=== PATIENT | male | born 1960 | race Caucasian/White ===

== ENCOUNTER → 2019-06-27 14:35 | Outpatient (CLI) | payer OTHER, SELFPAY ==
[2019-06-27 14:47] LABS: Bacteria Urine None Seen; RBC Urine None Seen (0-5/HPF); WBC Urine None Seen (0-5/HPF)
[2019-06-27 15:10] LABS: Appearance Urine UA CLEAR; Bilirubin Urine UA NEGATIVE (NEGATIVE); Color Urine UA YELLOW; Glucose Urine UA NEGATIVE (Negative); Ketones Urine UA NEGATIVE (NEGATIVE); Leukocyte Esterase Urine UA NEGATIVE (NEGATIVE); Nitrite Urine UA NEGATIVE (Negative); Occult Blood Urine UA NEGATIVE (Negative); Protein Urine UA NEGATIVE (Negative); Specific Gravity Urine UA <=1.005 (1.000-1.035); Urobilinogen Urine UA 0.2 E.U./dL (0.2); pH Urine UA 6.5 (4.5-8.0)
[2019-06-27 15:17] LABS: Culture Indicated Urine Cult Not Indicated; Urine Comments Microscopic Normal
[2019-06-27 15:40] LABS: Add Manual Diff / Slide Review NO; Basophils Absolute Auto 0 /uL (0-100); Basophils Percent Auto 0.5 % (0-2); Eosinophils Absolute Auto 300 /uL (0-450); Eosinophils Percent Auto 4.5 % (2-4); Hematocrit 41.4 % (41-53); Lymphocytes Absolute Auto 1700 /uL (1100-4500); Lymphocytes Percent Auto 25.9 % (25-40); Mean Corpuscular HGB Conc 33.8 % (30-36); Mean Corpuscular Hemoglobin 31.3 PG (26-34); Mean Corpuscular Volume 92.5 fL (80-100); Monocytes Absolute Auto 500 /uL (0-900); Monocytes Percent Auto 7.9 % (3-14); Neutrophils Absolute Auto 4100 /uL (1500-7000); Neutrophils Percent Auto 61.2 % (50-75); Platelet Count 255 X10^3/uL (150-400); Red Blood Cell Count 4.48 X10^6/uL (4.5-5.9); Red Cell Distribution Width 12.9 % (11.6-14.8); White Blood Cell Count 6.7 X10^3/uL (4.5-11.0)
[2019-06-27 16:23] LABS: B Type Natriuretic Peptide < 100 (<100)
[2019-06-27 16:31] LABS: Hemoglobin A1C% w Est Avg Glu 5.8 % (4.0-6.0)
[2019-06-27 16:39] LABS: Alanine Aminotransferase 48 IU/L (21-72); Albumin 4.6 g/dL (3.5-5.0); Albumin Globulin Ratio 1.8 (1.0-2.8); Alkaline Phosphatase 64 U/L (38-126); Aspartate Aminotransferase 34 IU/L (17-59); BUN Creatinine Ratio 21.3 (6-22); Bilirubin Total 0.7 mg/dL (0.2-1.3); Blood Urea Nitrogen 17 mg/dL (9-20); Calcium 9.7 mg/dL (8.4-10.2); Carbon Dioxide 30 mmol/L (22-32); Chloride 97 mmol/L (98-107); Cholesterol 209 mg/dL (140-199); Estimated Glomerular Filt Rate > 60.0 mL/min (>60); Globulin 2.6 g/dL (1.7-4.1); Glucose 94 mg/dL (70-100); HDL Cholesterol 63 mg/dL (40-60); HEMOLYSIS < 15 (0-50); LDL Cholesterol Calculated 129 mg/dL (<100); Potassium 4.2 mmol/L (3.4-5.1); Sodium 138 mmol/L (137-145); Total Protein 7.2 g/dL (6.3-8.2); Triglycerides 87 mg/dL (35-150)
== END ==
PROVIDERS: Visit Provider Hospitalist
DX: I10 Essential (primary) hypertension (principal); E66.9 Obesity, unspecified; R60.9 Edema, unspecified
CPT/HCPCS: 36415; 80053; 80061; 81001; 83036; 83880; 85025

== ENCOUNTER 2019-10-21 12:03 | Day surgery (SDC) | payer OTHER, SELFPAY ==
[2019-10-21] MEDS: SODIUM CHLORIDE 0.9% 1,000 ML 200 ML IV (12:21)
[2019-10-21 12:37] VITALS: BP 181/93; PULSE 88; RESP 16; TEMP 36.4; O2SAT 100; BMI 81.3
--- NOTE | 2019-10-21 12:50 | PM.HP.1 ---
History of Present Illness History of Present Illness Date Patient Seen: 10/21/19 Time Patient Seen: 12:50 Chief complaint: [id number] Narrative: Patient here for his 1st screening colonoscopy. He is asymptomatic. Patient History Family & Social History Family History Father Hypertension Pacemaker Social History: household members spouse Tobacco & Substance use: Smoking Status Former smoker alcohol intake frequency 3 or more drinks per day Meds Home Medications and Allergies Home Medications Medication Instructions Recorded Confirmed Type losartan 100 1 tab PO DAILY #30 tab 07/02/19 10/21/19 Rx mg-hydrochlorothiazide 25 mg tablet hydrochlorothiazide 50 mg PO DAILY 10/21/19 10/21/19 History Allergies Allergy/AdvReac Type Severity Reaction Status Date / Time mupirocin AdvReac skin Verified 10/21/19 12:21 irritation, redness Review of Systems Review of Systems ROS: Yes All systems reviewed with the patient and are negative except as otherwise documented Exam Vital Signs (past 8 hours): - 10/21/19 12:37 Temperature 97.6 F Pulse Rate 88 Respiratory Rate 16 Blood Pressure 181/93 H Pulse Oximetry 100 Oxygen Delivery Method Room Air Narrative Exam Narrative: Patient resting comfortably in bed Lungs are clear with distant breath sounds Heart regular rhythm no murmur Abdomen obese no organomegaly is noted Rectal to be done at time of colonoscopy Assessment & Plan Assessment & Plan narrative: Asymptomatic patient here for his 1st screening colonoscopy he has no unanswered questions.
[2019-10-21] MEDS: MIDAZOLAM 5 MG/5 ML VIAL IV (13:57)
[2019-10-21] MEDS: fentaNYL 250 MCG/5 ML INJ IV (13:58)
[2019-10-21 14:00] VITALS: BP 149/87; PULSE 88; RESP 13; TEMP 36.7; O2SAT 96
--- NOTE | 2019-10-21 14:00 | PM.OP.ENDO ---
Operative Date/Time/Diagnoses Date of procedure: 10/21/19 Time of procedure: 14:00 Pre-op diagnosis: Screening colonoscopy Post-op diagnosis: same Procedure & Clinicians Study performed: Total colonoscopy to the cecum Same procedure as scheduled: Yes Surgeon: Esdras Khan Procedure Notes SCOAP/Timeout: Was done Procedure in detail: The patient was properly identified during surgical pause was given a total of 5 mg of Versed and 200 micro g of fentanyl and remained comfortable throughout the procedure. The flexible fiberoptic colonoscope inserted transanally to the cecum. Patient has minimal sigmoid diverticulosis. No polyps tumors or ulcerations are identified anywhere in the colon. Procedure was well tolerated Scope withdrawal time: 8 Sedation minutes: 16 Findings: diverticulosis Impression: Minimal sigmoid diverticulosis Post-procedure Recommendations: Colonscopy in 10 years Disposition: PACU
[2019-10-21 14:05] VITALS: BP 130/79; PULSE 94; RESP 12; TEMP 36.6; O2SAT 97
[2019-10-21 14:08] VITALS: BP 127/61; PULSE 83; RESP 13; TEMP 36.6; O2SAT 97
--- NOTE | 2019-10-21 14:26 | SUR.PHASEII ---
brought in, d/c instructions discussed, both voiced an understanding. Pt dressed when ready and left when ready and in stable condition.
== END 2019-10-21 14:25 | disposition home or self-care (01) ==
PROVIDERS: Referring Provider Surgery; Visit Provider Surgery
PROC: 0DJD8ZZ Inspection of Lower Intestinal Tract, Via Natural or Artificial Opening Endoscopic (ICD-10-PCS; CPT 45378; principal; 2019-10-21 13:00)
DX: Z12.11 Encounter for screening for malignant neoplasm of colon (principal); K57.30 Diverticulosis of large intestine without perforation or abscess without bleeding
CPT/HCPCS: 45378; 99152; J2250; J3010

== ENCOUNTER → 2020-03-26 06:55 | Outpatient (CLI) | payer OTHER, SELFPAY ==
--- NOTE | 2020-03-26 07:10 | DI.ECHO.S_ITS ---
Echocardiogram Report + + :Name: ELIO MARTIN Study Date: 03/26/2020 Height: 69 in : :[facility] Weight: 255 lb : : Gender: Male BSA: 2.3 m2 : :: 1960 Age: 59 yrs BP: 160/84 mmHg: :Reason For Study: Edema, Palpitations : :Ordering Physician: MURIEL, : :CAMILO Orlando Performed By: Soniya Leong : :Referring: CAMILO LLAMAS : + + Interpretation Summary The ejection fraction is estimated to be 60-65%. There is no significant valvular heart disease. Procedure: A two-dimensional transthoracic echocardiogram with color flow and Doppler was performed. The study quality was technically difficult. There is no prior echocardiogram noted for this patient. The patient was in sinus rhythm with heart rates between 66-75 bpm during the exam. Left Ventricle: The left ventricle is normal in size. There is mild concentric left ventricular hypertrophy. The ejection fraction is estimated to be 60-65%. Left ventricular wall motion is normal. Diastolic parameters suggest a relaxation abnormality of the left ventricle, consistent with probable normal filling pressures. Right Ventricle: The right ventricle is mildly dilated. The right ventricular systolic function is normal. Atria: The left atrium is mildly dilated. Right atrial size is normal. There is no Doppler evidence for an interatrial shunt. Mitral Valve: The mitral valve is normal in structure and function. There is trace mitral regurgitation. Aortic Valve: The aortic valve is trileaflet. The aortic valve opens well. There is no aortic valve stenosis. No aortic regurgitation is present. Tricuspid Valve: The tricuspid valve is normal in structure and function. No tricuspid regurgitation. Pulmonary artery pressures cannot be estimated because of the lack of a measurable TR jet velocity but the IVC suggests a CVP of around 3 mmHg. Pulmonic Valve: The pulmonic valve is not well visualized. The pulmonic valve is not well seen, but is grossly normal. There is a trace or physiologic amount of pulmonic regurgitation. Great Vessels: The aortic root is normal size. The ascending aorta could not be visualized. The IVC is of normal diameter and collapses greater than 50% with a sniff. This suggests a low right atrial pressure of 3 mm Hg. Pericardium/ Pleura There is no pericardial effusion. There is no pleural effusion. MMode/2D Measurements & Calculations LVIDd: 5.6 cm LVOT diam: 2.1 cm LVIDs: 3.7 cm Ao root diam: 3.4 cm FS: 33.9 % Ao Arch Diam (Prox Trans): 2.5 cm EPSS: 0.93 cm IVSd: 1.1 cm LVPWd: 1.2 cm LV mattson. diameter/BSA (cm/m^2): 2.4 LV sys. diameter/BSA (cm/m^2): 1.6 LA A2 area: 26.0 cm2 RA long axis: 5.5 cm LA A4 area: 23.3 cm2 RA area: 18.6 cm2 LA length (vol): 5.9 cm RA vol: 54.0 ml LA vol: 87.1 ml RA : 23.6 ml/m2 LA vol index: 38.0 ml/m2 IVC diam: 2.0 cm RVD1 (basal): 4.1 cm TAPSE: 1.9 cm Doppler Measurements & Calculations Ao V2 max: 129.8 cm/sec LVOT Max Thor: 114.7 cm/sec Ao V2 mean: 86.7 cm/sec LV V1 max P.3 mmHg Ao max P.7 mmHg LV V1 VTI: 24.0 cm Ao mean P.5 mmHg VIRGINIE(I,D): 3.2 cm2 Ao V2 VTI: 26.7 cm VIRGINIE(V,D): 3.2 cm2 sev ratio: 0.90 VIRGINIE indexed to BSA (cm^2/m^2): 1.4 MV E max thor: 98.2 cm/sec PA V2 max: 82.0 cm/sec MV A max thor: 93.0 cm/sec PA V2 mean: 58.7 cm/sec MV E/A: 1.1 PA mean P.5 mmHg Med Peak E' Thor: 9.2 cm/sec PA pr(Accel): 0.22 mmHg E/E' med: 10.7 Lat Peak E' Thor: 9.4 cm/sec E/E' lat: 10.4 E/e' average: 10.6 MV dec time: 0.17 sec SV(LVOT): 86.7 ml Reading Physician:02:49 PM
== END ==
PROVIDERS: PCP Internal Medicine; Referring Provider Internal Medicine; Visit Provider Internal Medicine
DX: R00.2 Palpitations (principal); R60.9 Edema, unspecified
CPT/HCPCS: 93306

== ENCOUNTER → 2022-09-26 13:26 | Outpatient (CLI) | payer OTHER, SELFPAY ==
[2022-09-26 14:21] LABS: Alanine Aminotransferase 38 IU/L (<50); Alkaline Phosphatase 65 U/L (38-126); Aspartate Aminotransferase 29 IU/L (17-59); BUN Creatinine Ratio 27.3 (6-22); Bilirubin Total 0.6 mg/dL (0.2-1.3); Blood Urea Nitrogen 18 mg/dL (9-20); Calcium 9.1 mg/dL (8.4-10.2); Carbon Dioxide 29 mmol/L (22-32); Chloride 97 mmol/L (98-107); Cholesterol 208 mg/dL (140-199); Estimated Glomerular Filt Rate > 60 mL/min (>60); Glucose 101 mg/dL (70-100); HDL Cholesterol 59 mg/dL (40-60); LDL Cholesterol Calculated 130 mg/dL (<100); Potassium 3.9 mmol/L (3.4-5.1); Sodium 137 mmol/L (137-145); Total Protein 7.2 g/dL (6.3-8.2); Triglycerides 94 mg/dL (35-150)
[2022-09-26 14:47] LABS: Prostate Specific Antigen Scrn 0.993 ng/mL (0.1-4.0)
[2022-09-30 15:50] LABS: Albumin 4.3 g/dL (3.5-5.0); Albumin Globulin Ratio 1.5 (1.0-2.8); Globulin 2.9 g/dL (1.7-4.1); HEMOLYSIS 36 (0-50)
== END ==
PROVIDERS: PCP Internal Medicine; Referring Provider Internal Medicine; Visit Provider Internal Medicine
DX: I10 Essential (primary) hypertension (principal); Z12.5 Encounter for screening for malignant neoplasm of prostate; Z13.6 Encounter for screening for cardiovascular disorders; Z79.899 Other long term (current) drug therapy
CPT/HCPCS: 36415; 80053; 80061; G0103

== ENCOUNTER 2022-09-27 16:36 | Emergency (ER) | payer OTHER, SELFPAY ==
[2022-09-27] VITALS (8 sets, daily range): BP systolic 150–202; BP diastolic 78–103; PULSE 77–192; RESP 15–24; TEMP 36.6; O2SAT 96–99; BMI 35.9
--- NOTE | 2022-09-27 16:54 | PC.NURSE ---
pt converted to SR
--- NOTE | 2022-09-27 17:03 | ED.ARRPALP ---
HPI - Arrhythmia/Palpitations General Chief Complaint: Arrhythmia/Palpitations Stated Complaint: heart palpitations, tightening in chest, rapid hr Time Seen by Provider: 09/27/22 16:46 Source: patient Mode of arrival: Ambulatory History of Present Illness HPI narrative: 61-year-old male former smoker with history of hypertension presents with a chief complaint of a rapid heart rate, chest pain and some lightheadedness. He states this started maybe a few hours ago and he thinks perhaps it happened a few days ago but otherwise he does not have any history of any rapid heart rate. He had been in his normal state of health when this started out of nowhere. When it happened a few days ago it lasted for an hour so and then resolved on its own. He denies any recent change in medications or diet. Is not been ill and has had no fever or chills. He denies recent travel or injury. He denies use of illicit drugs. He has not had alcohol in many days. Related Data Previous Rx's Medication Instructions Recorded sildenafil 50 mg tablet (Viagra) 50 mg PO DAILY PRN sexual activity 09/13/21 #10 tabs losartan 100 1 tab PO DAILY #90 tabs 07/28/22 mg-hydrochlorothiazide 25 mg tablet Allergies Allergy/AdvReac Type Severity Reaction Status Date / Time lisinopril AdvReac Severe cough Verified 09/27/22 16:47 mupirocin AdvReac skin Verified 09/27/22 16:47 irritation, redness Review of Systems Review of Systems Narrative: GENERAL: Denies chills, fatigue, malaise, fever, sweats. HEENT: Denies sinus pain, ear pain, sore throat, difficulty swallowing, dizziness. RESPIRATORY: See HPI CARDIOVASCULAR: See HPI GASTROINTESTINAL: Denies nausea, vomiting, abdominal pain, diarrhea, constipation, melena. : Denies dysuria, frequency, incontinence, hematuria, urinary retention. MUSCULOSKELETAL: denies weakness, joint pain, or bony pain SKIN: Denies rash, skin lesions, or other NEUROLOGIC: Denies weakness, headache, numbness, change in speech, confusion, seizures, incoordination. PSYCHIATRIC: No concerning psychosocial issues. 12 point review of systems is negative except for those stated above Patient History Medical History (Updated 09/27/22 @ 18:00 by Brandan Funes DO) Asthma (~2017) Eczema Hypertension Obesity DONOVAN (obstructive sleep apnea) Palpitations Proteinuria (~2009) Wears glasses Surgical History (Updated 04/22/20 @ 20:37 by Tequila Levi) Anesthesia History of colonoscopy (~2018) S/P ACL repair (~2010) Status post rotator cuff repair (~2008) Family History (Updated 04/22/20 @ 20:38 by Tequila Levi) Father Hypertension Pacemaker Loud snoring Sleep apnea Heart disease Mother Obesity Family/Other Loud snoring Sleep apnea Obesity Hypertension Grandfather Heart disease Social History household members: spouse Smoking Status: Former smoker Smoking Status: Former smoker alcohol intake frequency: 3 or more drinks per day Substance Use Type: does not use Exam Narrative Exam Narrative: GENERAL: [61] year old patient appears stated age. Well-developed patient, in mild distress. HEAD: Atraumatic. Normocephalic. EYES: Pupils equal round and reactive. Extraocular motions intact. No scleral icterus. No injection or drainage. ENT: Nose without bleeding, purulent drainage. Throat without erythema, tonsillar hypertrophy or exudate. Airway patent. NECK: Trachea midline. Non tender CARDIOVASCULAR: Tachycardic and regular rhythm without murmurs, gallops, or rubs. RESPIRATORY: Clear to auscultation. Breath sounds equal bilaterally. No wheezes, rales, or rhonchi. GASTROINTESTINAL: Abdomen soft, non-tender, nondistended. EXTREMITIES: No edema or joint tenderness. BACK: Nontender without deformity or crepitance. No flank tenderness. NEURO: AOx3. SKIN: No rash or erythema of visible areas Initial Vital Signs Initial Vital Signs: Vital Signs Temperature 98 F 09/27/22 16:44 Pulse Rate 192 H 09/27/22 16:44 Respiratory Rate 19 09/27/22 16:44 Blood Pressure 152/83 H 09/27/22 16:44 Pulse Oximetry 99 09/27/22 16:44 Oxygen Delivery Method 09/27/22 16:44 Course Orders Ordered: Discontinued Medications Diltiazem HCl (Diltiazem 5 Mg/Ml Sdv) 20 mg IV NOW ONE Stop: 09/27/22 16:47 Reevaluation(s) Reevaluation #1: Patient was moved to trauma 2 in preparation for cardioversion with Cardizem versus adenosine. We were attempting vagal maneuvers and when lying patient flat for modified Valsalva maneuver he spontaneously converted into a sinus rhythm in the 90s and remained there for the duration of his visit. Vital Signs Vital signs: Vital Signs - 8 hr 09/27/22 16:44 09/27/22 16:52 09/27/22 16:53 Temperature 98 F Pulse Rate 192 H 172 H Respiratory Rate 19 23 Blood Pressure 152/83 H 202/103 H Pulse Oximetry 99 99 Oxygen Delivery Method Room Air 09/27/22 16:53 09/27/22 17:00 09/27/22 17:00 Temperature Pulse Rate 96 H 93 H Respiratory Rate 23 24 Blood Pressure 173/94 H Pulse Oximetry 98 98 Oxygen Delivery Method MDM - Arrhythmia/Palpitations Lab Data Result diagrams: 09/27/22 16:50 09/27/22 16:50 Labs: Lab Results 09/27/22 09/27/22 09/27/22 Range/Units 16:50 16:50 16:50 WBC 7.0 (4.5-11.0) X10^3/uL RBC 4.57 (4.5-5.9) X10^6/uL Hgb 14.6 (13.5-17.5) g/dL Hct 42.3 (41-53) % MCV 92.6 (80-100) fL MCH 32.0 (26-34) PG MCHC 34.6 (30-36) % RDW 13.6 (11.6-14.8) % Plt Count 230 (150-400) X10^3/uL Neut % (Auto) 66.3 (50-75) % Lymph % (Auto) 21.8 L (25-40) % Carroll % (Auto) 7.9 (3-14) % Eos % (Auto) 3.4 (2-4) % Baso % (Auto) 0.6 (0-2) % Neut # (Auto) 4700 (2613-4848) /uL Lymph # (Auto) 1500 (5102-9669) /uL Carroll # (Auto) 600 (0-900) /uL Eos # (Auto) 200 (0-450) /uL Baso # (Auto) 0 (0-100) /uL Sodium 137 (137-145) mmol/L Potassium 3.8 (3.4-5.1) mmol/L Chloride 101 (98-107) mmol/L Carbon Dioxide 26 (22-32) mmol/L BUN 20 (9-20) mg/dL Creatinine 0.86 (0.66-1.25) mg/dL Estimated GFR > 60 (>60) mL/min BUN/Creatinine Ratio 23.3 H (6-22) Glucose 113 H (70-100) mg/dL Calcium 9.4 (8.4-10.2) mg/dL Total Creatine Kinase 134 (55-170) U/L CK-MB (CK-2) 1.53 (<2.37) ng/mL CK-MB (CK-2) Rel Index 1.1 L (1.5-5.0) % Troponin I < 0.012 (0.01-0.034) ng/mL NT-Pro-B Natriuret Pep 68 (<125) pg/mL TSH 3.78 (0.47-4.68) uIU/mL Urine Dip Bedside Urine Glucose Negative Bedside Urine Bilirubin - Negative Bedside Urine Ketone - Negative Urine Specific Bucklin 1.015 Bedside Urine Occult Blood - Negative Bedside Urine pH 6.0 Bedside Urine Protein - Negative Bedside Urine Urobilinogen - Negative Bedside Urine Nitrite - Negative Bedside Urine Leukocytes - Negative Esterase ECG Data Interpretation: [1646] EKG is normal sinus rhythm rate [179 ] and free of any signs of ischemia or ectopy. No ST segmental elevation or depression. No T wave inversions MDM Narrative Medical decision making narrative: CC: 61-year-old male with rapid heart rate shortness of breath and heaviness Complicating co-morbidities: Hypertension Data collected from: Patient Medical records reviewed: including prior notes from PCP Differential considered, but not limited to: SVT versus rapid AFib versus atrial flutter versus other Exam documented above, pertinent findings include: Rapid regular heart rate, some increased work of breathing while tachycardic Lab Test results independently reviewed as above. Pertinent findings: Independently reviewed EKG as above Re-evaluations: Patient completely asymptomatic after conversion of SVT Discussion: Patient moderately symptomatic with SVT, converted spontaneously while preparing to administer diltiazem. Labs are reassuring and patient remains in a sinus rhythm without dizziness, weakness or lightheadedness. No ongoing chest pain or shortness of breath. He is appropriate for discharge and given extensive return precautions as well as encouragement to research vagal maneuvers that may be performed at home. Disposition: see below, along with detailed discharge instructions that have been reviewed with patient as well as indications for ED re-evaluation and additional outpatient follow up Discharge Plan Departure Patient Disposition: Home Clinical Impression: Supraventricular tachycardia Instructions: Paroxysmal Supraventricular Tachycardia Activity Restrictions/Additional Instructions: *You have been diagnosed with [SVT] *What to do: *Please continue to take your regular medications as directed. *Please follow up with your primary care provider in 2-3 days, call for an appointment. Let them know you were seen in the Emergency Department and that we ask that you be seen in follow up. We will electronically transmit a record of today's note if your PCP is in our system * as we discussed avoid consuming stimulants such as caffeine, alcohol, nicotine. Avoid significant physical exertion and other things that would cause your heart to elevate significantly until follow-up with your primary care provider *Return to Emergency Department if you should have any new, worsening or concerning symptoms, such as [fever greater than 101 F, shaking chills, worsening pain, persistent vomiting or other bothersome symptoms] Prescriptions: No Action sildenafil [Viagra] 50 mg tablet 50 mg PO DAILY PRN (Reason: sexual activity) Qty: 10 5RF Rx Instructions: administer 30 minutes to 4 hours before activity losartan-hydrochlorothiazide 100-25 mg tablet 1 tab PO DAILY Qty: 90 3RF Referrals: Steve Pierre MD [Primary Care Provider] - Stand Alone Forms: Patient Portal/API
[2022-09-27 17:40] LABS: Basophils Absolute Auto 0 /uL (0-100); Hemoglobin 14.6 g/dL (13.5-17.5)
[2022-09-27 17:43] LABS: Add Manual Diff / Slide Review NO; Basophils Percent Auto 0.6 % (0-2); Eosinophils Absolute Auto 200 /uL (0-450); Eosinophils Percent Auto 3.4 % (2-4); Hematocrit 42.3 % (41-53); Lymphocytes Absolute Auto 1500 /uL (1100-4500); Lymphocytes Percent Auto 21.8 % (25-40); Mean Corpuscular HGB Conc 34.6 % (30-36); Mean Corpuscular Volume 92.6 fL (80-100); Monocytes Absolute Auto 600 /uL (0-900); Monocytes Percent Auto 7.9 % (3-14); Neutrophils Absolute Auto 4700 /uL (1500-7000); Neutrophils Percent Auto 66.3 % (50-75); Platelet Count 230 X10^3/uL (150-400); Red Blood Cell Count 4.57 X10^6/uL (4.5-5.9); Red Cell Distribution Width 13.6 % (11.6-14.8)
[2022-09-27 17:54] LABS: BUN Creatinine Ratio 23.3 (6-22); Blood Urea Nitrogen 20 mg/dL (9-20); Calcium 9.4 mg/dL (8.4-10.2); Carbon Dioxide 26 mmol/L (22-32); Chloride 101 mmol/L (98-107); Creatine Kinase 134 U/L (55-170); Estimated Glomerular Filt Rate > 60 mL/min (>60); Glucose 113 mg/dL (70-100); HEMOLYSIS 19 (0-50); Potassium 3.8 mmol/L (3.4-5.1); Sodium 137 mmol/L (137-145)
[2022-09-27 18:06] LABS: NT-proBNP (BNP-Adult 18+) 68 pg/mL (<125); Troponin I < 0.012 ng/mL (0.01-0.034)
[2022-09-27 18:08] LABS: CKMB % Relative Index 1.1 % (1.5-5.0); Creatine Kinase MB 1.53 ng/mL (<2.37)
[2022-09-27 18:26] LABS: TSH w/ Reflex to FT4 3.78 uIU/mL (0.47-4.68)
== END 2022-09-27 18:57 | disposition home or self-care (01) ==
PROVIDERS: Emergency Provider Emergency Medicine; PCP Internal Medicine
DX: I47.1 Supraventricular tachycardia (principal)
CPT/HCPCS: 36415; 80048; 81003; 82550; 82553; 83880; 84443; 84484; 85025; 93005; 99283; 99284

== ENCOUNTER → 2022-10-12 07:56 | Outpatient (CLI) | payer OTHER, SELFPAY ==
--- NOTE | 2022-10-24 14:50 | PM.CARDMON.1 ---
Occupational Health Physiotherapist Report Referral & Results Date Patient Seen: 10/12/22 Requesting provider: Steve Pierre Indication: SVT Duration of monitoring (days): 8 Diary information: There were 2 patient triggered events both associated with sinus rhythm only Data: Minimum heart rate identified was 49 beats per minute at 04:11 on 10/17/2022 Maximum sinus heart rate was 137 beats per minute at 19:45 on 10/14/2022 Maximum overall heart rate was 150 beats per minute at 16:26 on 10/16/2022 during a run of SVT Less than 1% of identified beats were ventricular or supraventricular ectopic in origin, which would classify them as rare. 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
== END ==
PROVIDERS: PCP Internal Medicine; Referring Provider Internal Medicine; Visit Provider Internal Medicine
DX: I47.1 Supraventricular tachycardia (principal)
CPT/HCPCS: 93242; 93248

== ENCOUNTER → 2023-07-21 16:22 | Outpatient (CLI) | payer OTHER, SELFPAY ==
[2023-07-21 17:30] LABS: BUN Creatinine Ratio 31.9 (6-22); Blood Urea Nitrogen 22 mg/dL (9-20); Calcium 9.6 mg/dL (8.4-10.2); Carbon Dioxide 29 mmol/L (22-32); Chloride 102 mmol/L (98-107); Estimated Glomerular Filt Rate > 60 mL/min (>60); Glucose 122 mg/dL (80-110); HEMOLYSIS 24 (0-50); Potassium 3.7 mmol/L (3.4-5.1); Sodium 138 mmol/L (137-145)
== END ==
PROVIDERS: PCP Internal Medicine; Referring Provider Internal Medicine; Visit Provider Internal Medicine
DX: I10 Essential (primary) hypertension (principal)
CPT/HCPCS: 36415; 80048

== ENCOUNTER → 2023-07-28 17:47 | Outpatient (CLI) | payer OTHER, SELFPAY ==
[2023-07-28 18:01] LABS: Add Manual Diff / Slide Review NO; Basophils Absolute Auto 100 /uL (0-100); Basophils Percent Auto 0.8 % (0-2); Eosinophils Absolute Auto 200 /uL (0-450); Eosinophils Percent Auto 3.9 % (2-4); Hematocrit 38.9 % (41-53); Hemoglobin 13.5 g/dL (13.5-17.5); Lymphocytes Absolute Auto 2000 /uL (1100-4500); Lymphocytes Percent Auto 30.8 % (25-40); Mean Corpuscular HGB Conc 34.7 % (30-36); Mean Corpuscular Hemoglobin 31.3 PG (26-34); Mean Corpuscular Volume 90.1 fL (80-100); Monocytes Absolute Auto 400 /uL (0-900); Monocytes Percent Auto 6.9 % (3-14); Neutrophils Absolute Auto 3700 /uL (1500-7000); Neutrophils Percent Auto 57.6 % (50-75); Platelet Count 232 X10^3/uL (150-400); Red Blood Cell Count 4.32 X10^6/uL (4.5-5.9); Red Cell Distribution Width 12.7 % (11.6-14.8); White Blood Cell Count 6.4 X10^3/uL (4.5-11.0)
[2023-07-28 18:14] LABS: Blood Urea Nitrogen 19 mg/dL (9-20); Calcium 9.5 mg/dL (8.4-10.2); Carbon Dioxide 26 mmol/L (22-32); Chloride 105 mmol/L (98-107); Estimated Glomerular Filt Rate > 60 mL/min (>60); Glucose 153 mg/dL (80-110); HEMOLYSIS 35 (0-50); Potassium 3.8 mmol/L (3.4-5.1); Sodium 138 mmol/L (137-145)
== END ==
PROVIDERS: PCP Internal Medicine; Referring Provider Internal Medicine Cardiovascular Disease; Visit Provider Internal Medicine Cardiovascular Disease
DX: I47.10 Supraventricular tachycardia, unspecified (principal)
CPT/HCPCS: 36415; 80048; 85025

== ENCOUNTER → 2023-11-02 07:37 | Outpatient (CLI) | payer OTHER, SELFPAY ==
[2023-11-02 08:29] LABS: Add Manual Diff / Slide Review NO; Basophils Absolute Auto 0 /uL (0-100); Basophils Percent Auto 0.6 % (0-2); Eosinophils Absolute Auto 300 /uL (0-450); Eosinophils Percent Auto 6.2 % (2-4); Hematocrit 40.1 % (41-53); Hemoglobin 13.6 g/dL (13.5-17.5); Lymphocytes Absolute Auto 1600 /uL (1100-4500); Lymphocytes Percent Auto 30.7 % (25-40); Mean Corpuscular Hemoglobin 31.4 PG (26-34); Mean Corpuscular Volume 92.4 fL (80-100); Monocytes Absolute Auto 500 /uL (0-900); Monocytes Percent Auto 10.3 % (3-14); Neutrophils Absolute Auto 2800 /uL (1500-7000); Neutrophils Percent Auto 52.2 % (50-75); Platelet Count 252 X10^3/uL (150-400); Red Blood Cell Count 4.34 X10^6/uL (4.5-5.9); White Blood Cell Count 5.3 X10^3/uL (4.5-11.0)
[2023-11-02 09:46] LABS: Alanine Aminotransferase 43 IU/L (<50); Albumin 4.4 g/dL (3.5-5.0); Albumin Globulin Ratio 1.4 (1.0-2.8); Alkaline Phosphatase 63 U/L (38-126); Aspartate Aminotransferase 31 IU/L (17-59); BUN Creatinine Ratio 22.5 (6-22); Bilirubin Total 0.6 mg/dL (0.2-1.3); Blood Urea Nitrogen 18 mg/dL (9-20); Calcium 9.3 mg/dL (8.4-10.2); Carbon Dioxide 31 mmol/L (22-32); Chloride 101 mmol/L (98-107); Cholesterol 227 mg/dL (140-199); Estimated Glomerular Filt Rate > 60 mL/min (>60); Globulin 3.1 g/dL (1.7-4.1); Glucose 125 mg/dL (80-110); HDL Cholesterol 58 mg/dL (40-60); HEMOLYSIS 16 (0-50); LDL Cholesterol Calculated 145 mg/dL (<100); Potassium 4.4 mmol/L (3.4-5.1); Sodium 140 mmol/L (137-145); TSH w/ Reflex to FT4 2.55 uIU/mL (0.47-4.68); Total Protein 7.5 g/dL (6.3-8.2); Triglycerides 120 mg/dL (35-150)
[2023-11-02 09:51] LABS: NT-proBNP (BNP-Adult 18+) < 20 pg/mL (<125)
[2023-11-02 10:12] LABS: Prostate Specific Antigen Scrn 1.24 ng/mL (0.1-4.0)
== END ==
PROVIDERS: PCP Internal Medicine; Referring Provider Internal Medicine; Visit Provider Internal Medicine
DX: Z12.5 Encounter for screening for malignant neoplasm of prostate (principal); Z13.6 Encounter for screening for cardiovascular disorders; J45.909 Unspecified asthma, uncomplicated; G47.33 Obstructive sleep apnea (adult) (pediatric); I10 Essential (primary) hypertension; R00.2 Palpitations; R60.9 Edema, unspecified
CPT/HCPCS: 36415; 80053; 80061; 83880; 84443; 85025; G0103

== ENCOUNTER → 2024-02-19 13:14 | Outpatient (CLI) | payer OTHER, SELFPAY ==
--- NOTE | 2024-02-19 13:14 | DI.US.S_ITS ---
PROCEDURE: US PERIPH VENOUS LOW EXTREM RT INDICATIONS: EDEMA TECHNIQUE: Real-time imaging, as well as color and pulse Doppler interrogation, were performed of the lower extremity deep veins from the inguinal ligament to the popliteal fossa, with documentation of the visualized calf veins. COMPARISON: None. FINDINGS: The common femoral, femoral, popliteal, and the visualized calf veins are normally compressible, and free of intraluminal thrombus. Color and pulse Doppler demonstrate normal phasic intraluminal flow. There is normal augmentation response to distal compression maneuver. IMPRESSION: No findings of lower extremity deep venous thrombosis. Dictated by: Julio eCsar Lisa M.D. on 02/19/2024 at 14:06 Approved by: Julio Cesar Lisa M.D. on 02/19/2024 at 14:06
== END ==
PROVIDERS: PCP Internal Medicine; Referring Provider Internal Medicine; Visit Provider Internal Medicine
DX: I47.10 Supraventricular tachycardia, unspecified (principal); R60.0 Localized edema
CPT/HCPCS: 93971

== ENCOUNTER → 2024-03-07 06:54 | Outpatient (CLI) | payer OTHER, SELFPAY ==
--- NOTE | 2024-03-07 06:55 | DI.ECHO.S_ITS ---
[facility] : : [address] : [place] : : [id number] : : Phone: [phone] Echocardiogram Report + + :Name: ELIO MARTIN Study Date: 03/07/2024 Height: 69 in : :[facility] ReadingLocation: Weight: 255 lb : : Gender: Male BSA: 2.3 m2 : :: 1960 Age: 63 yrs BP: 162/92 mmHg: :Reason For Study: SUPRAVENTRICULAR TACHYCARDIA : :Ordering Physician: MURIEL, : :CAMILO Orlando Performed By: Sachin Banks : :Referring: CAMILO LLAMAS : + + Interpretation Summary 1) Mildly increased left ventricular thickness (concentric) with normal size, normal wall motion, and normal systolic function (EF 60-65%). 2) Mildy enlarged right ventricle with normal function. 3) No significant valvular abnormalities. 4) Hypertension present during the study (BP 162/92mmHg). 5) Compared to the echo done 03/26/2020, no significant change. Procedure: A two-dimensional transthoracic echocardiogram with color flow and Doppler was performed. The study quality was technically adequate. Comparison is made with the echocardiogram of 03/26/2020. The patient was in normal sinus rhythm during the exam. The heart rate ranged between 66-77 bpm during the study. Left Ventricle: The left ventricle is normal in size. There is mild concentric left ventricular hypertrophy. The ejection fraction is estimated to be 60-65%. Left ventricular systolic function appears normal without focal wall motion abnormalities. Right Ventricle: The right ventricle is mildly dilated. The right ventricular systolic function is normal. Atria: The left atrium is mildly dilated. The right atrium is mild to moderately dilated. The interatrial septum grossly appears intact with no obvious evidence for an atrial septal defect. Mitral Valve: The mitral valve is normal. There is no mitral valve stenosis. There is trace mitral regurgitation. Aortic Valve: The aortic valve is trileaflet. There is no aortic valve stenosis. There is trace aortic regurgitation. Tricuspid Valve: The tricuspid valve is normal. There is no tricuspid stenosis. No tricuspid regurgitation. Pulmonary artery pressures cannot be estimated because of the lack of a measurable TR jet velocity. Pulmonic Valve: The pulmonic valve is not well visualized. There is no pulmonic valvular stenosis. There is no pulmonic valvular regurgitation. Great Vessels: The aortic root is borderline dilated. The dimensions of the ascending aorta are normal. The IVC is dilated (diameter is greater than 2.1 cm) yet it collapses greater than 50% with a sniff. This suggests a right atrial pressure of 8 mm Hg. Pericardium/ Pleura There is no pericardial effusion. There is no pleural effusion. MMode/2D Measurements & Calculations LVIDd: 5.8 cm LVOT diam: 2.5 cm LVIDs: 4.0 cm Ao root diam: 3.8 cm FS: 30.0 % asc Aorta Diam: 3.7 cm IVSd: 1.2 cm LVPWd: 1.1 cm LV mattson. diameter/BSA (cm/m^2): 2.5 LV sys. diameter/BSA (cm/m^2): 1.8 LA A2 area: 23.4 cm2 RA long axis: 5.3 cm LA A4 area: 24.5 cm2 RA area: 20.7 cm2 LA length (vol): 5.9 cm RA vol: 68.7 ml LA vol: 82.2 ml RA : 30.0 ml/m2 LA vol index: 35.9 ml/m2 IVC diam: 2.5 cm RVD1 (basal): 5.1 cm RVD2 (mid): 5.1 cm TAPSE: 2.4 cm Doppler Measurements & Calculations Ao V2 max: 135.6 cm/sec LVOT Max Thor: 108.3 cm/sec Ao V2 mean: 100.1 cm/sec LV V1 max P.7 mmHg Ao max P.4 mmHg LV V1 VTI: 24.9 cm Ao mean P.3 mmHg VIRGINIE(I,D): 3.8 cm2 Ao V2 VTI: 31.6 cm VIRGINIE(V,D): 3.8 cm2 sev ratio: 0.79 VIRGINIE indexed to BSA (cm^2/m^2): 1.6 MV E max thor: 88.0 cm/sec PA V2 max: 125.0 cm/sec MV A max thor: 89.8 cm/sec PA V2 mean: 83.5 cm/sec MV E/A: 0.98 PA mean P.2 mmHg Med Peak E' Thor: 6.2 cm/sec PA pr(Accel): 48.2 mmHg E/E' med: 14.1 Lat Peak E' Thor: 8.4 cm/sec E/E' lat: 10.5 E/e' average: 12.3 MV dec time: 0.16 sec SV(LVOT): 119.0 ml Reading Physician:10:55 AM
== END ==
PROVIDERS: PCP Internal Medicine; Referring Provider Internal Medicine; Visit Provider Internal Medicine
DX: I47.10 Supraventricular tachycardia, unspecified; R60.0 Localized edema
CPT/HCPCS: 93306

== ENCOUNTER 2024-10-04 04:45 | Emergency (ER) | payer OTHER, SELFPAY ==
[2024-10-04] VITALS (8 sets, daily range): BP systolic 174–218; BP diastolic 87–115; PULSE 79–145; RESP 13–22; TEMP 36.6; O2SAT 94–97; BMI 39.1
--- NOTE | 2024-10-04 04:51 | EKG_ITS ---
[facility] [address] [place] [address] Test Date: 2024-10-04 Pat Name: To Guzmán Department: [facility] Room: Gender: Male Special Education Secretary: ALISE STYLES : 1960 Requested By: Order Number: [id number] Reading MD: Americo Miles Measurements Intervals Fisher Rate: 145 P: VT: 160 QRS: 44 QRSD: 90 T: 37 QT: 280 QTc: 434 Interpretive Statements Critical Test Result: High HR Sinus tachycardia Nonspecific ST abnormality Electronically Signed On 10-04-2024 12:56:17 PST by Americo Miles
--- NOTE | 2024-10-04 04:57 | ED.ARRPALP ---
HPI - Arrhythmia/Palpitations General Chief Complaint: Arrhythmia/Palpitations Stated Complaint: svt flare up Time Seen by Provider: 10/04/24 04:46 Source: patient Mode of arrival: Ambulatory History of Present Illness HPI narrative: Patient was a 63-year-old male. Has a history SVT. He was not on anticoagulation. Has had an ablation in the past. Last episode were he was seen in the emergency department was approximately 2 years ago. He was had intermittent episodes since then. They have all converted on their own without needing intervention. He was never been cardioverted. States that last evening he felt like he had a short episode of a rapid heartbeat. He states it went away on its own and he went to bed and this morning woke up shortly after waking up felt like his heart was beating fast. Related Data Home Medications Medication Instructions Recorded Confirmed omega-3 fatty acids 1,000 mg PO DAILY 07/25/23 02/13/24 magnesium 1 tab PO DAILY 11/27/23 02/13/24 Previous Rx's Medication Instructions Recorded valsartan 80 mg tablet 80 mg PO DAILY #90 tabs 10/30/23 potassium chloride 8 mEq 8 meq PO DAILY #90 tabs 11/27/23 tablet,extended release metoprolol succinate 50 mg 50 mg PO DAILY #90 tabs 05/15/24 tablet,extended release 24 hr furosemide 40 mg tablet 40 mg PO DAILY #90 tabs 05/24/24 Allergies Allergy/AdvReac Type Severity Reaction Status Date / Time lisinopril AdvReac Severe cough Verified 02/13/24 11:27 amlodipine AdvReac Intermediate edema Verified 02/13/24 11:52 mupirocin AdvReac skin Verified 02/13/24 11:27 irritation, redness Review of Systems Review of Systems ROS Unobtainable: All systems reviewed & are unremarkable except as noted in HPI and below Patient History Medical History Peripheral edema Palpitations Wears glasses Eczema Asthma (~2016) Proteinuria (~2009) DONOVAN (obstructive sleep apnea) Obesity Hypertension Surgical History (Updated 10/30/23 @ 16:17 by Steve Pierre MD) History of radiofrequency ablation (RFA) procedure for cardiac arrhythmia (~07/2023) Anesthesia History of colonoscopy (~2018) S/P ACL repair (~2010) Status post rotator cuff repair (~2008) Family History (Updated 04/22/20 @ 20:38 by Tequila Levi) Father Hypertension Pacemaker Loud snoring Sleep apnea Heart disease Mother Obesity Family/Other Loud snoring Sleep apnea Obesity Hypertension Grandfather Heart disease Social History household members: spouse Smoking Status: Former smoker Smoking Status: Former smoker alcohol intake frequency: 3 or more drinks per day Exam Initial Vital Signs Initial Vital Signs: Vital Signs Temperature 98 F 10/04/24 04:51 Pulse Rate 142 H 10/04/24 04:51 Respiratory Rate 18 10/04/24 04:51 Blood Pressure 218/115 H 10/04/24 04:51 Pulse Oximetry 97 10/04/24 04:51 Oxygen Delivery Method Room Air 10/04/24 04:51 Const General: cooperative, comfortable and No ill appearing HENMT Head: normal to inspection and normocephalic Resp Effort & Inspection: normal respiratory effort Auscultation: clear to auscultation bilaterally Cardio Rate: tachycardic Rhythm: regular rhythm Skin General: no rashes or lesions noted Neuro General: patient alert, patient awake, patient oriented x3 and moves all extremities Extrem General: edema Course Orders Ordered: ED Orders 10/04/24 04:46 EKG-12 Lead Stat 10/04/24 04:50 Complete Blood Count AUTO DIFF Stat Comprehensive Metabolic Panel Stat Lipase Stat Magnesium Stat Troponin & CK Cardiac Panel Stat 10/04/24 05:11 EKG-12 Lead Stat Discontinued Medications Adenosine (Adenosine 6 Mg/2 Ml Vial) 12 mg IV NOW ONE Stop: 10/04/24 04:58 Vital Signs Vital signs: Vital Signs - 8 hr 10/04/24 04:51 10/04/24 04:54 10/04/24 05:00 Temperature 98 F Pulse Rate 142 H 145 H 142 H Respiratory Rate 18 13 19 Blood Pressure 218/115 H Pulse Oximetry 97 97 Oxygen Delivery Method Room Air Room Air 10/04/24 05:03 10/04/24 05:03 10/04/24 05:11 Temperature Pulse Rate 135 H Respiratory Rate 18 Blood Pressure 192/115 H 197/100 H Pulse Oximetry 96 Oxygen Delivery Method Room Air 10/04/24 05:11 10/04/24 05:12 10/04/24 05:13 Temperature Pulse Rate 90 88 Respiratory Rate 22 19 Blood Pressure 181/92 H Pulse Oximetry 95 96 Oxygen Delivery Method Room Air Room Air 10/04/24 05:13 10/04/24 05:30 10/04/24 05:30 Temperature Pulse Rate 86 79 Respiratory Rate 18 15 Blood Pressure 174/87 H Pulse Oximetry 95 94 Oxygen Delivery Method MDM - Arrhythmia/Palpitations Medical Records Attestation: I reviewed the patient's medical records. Lab Data Attestation: I reviewed the patient's lab results. 10/04/24 05:03 10/04/24 05:03 Labs: Lab Results 10/04/24 Range/Units 05:03 WBC 6.8 (4.5-11.0) X10^3/uL RBC 4.55 (4.5-5.9) X10^6/uL Hgb 14.3 (13.5-17.5) g/dL Hct 41.9 (41-53) % MCV 92.1 (80-100) fL MCH 31.4 (26-34) PG MCHC 34.1 (30-36) % RDW 13.3 (11.6-14.8) % Plt Count 250 (150-400) X10^3/uL Neut % (Auto) 57.6 (50-75) % Lymph % (Auto) 25.0 (25-40) % [place] % (Auto) 10.7 (3-14) % Eos % (Auto) 6.0 H (2-4) % Baso % (Auto) 0.7 (0-2) % Neut # (Auto) 3900 (4676-6511) /uL Lymph # (Auto) 1700 (5326-4007) /uL [place] # (Auto) 700 (0-900) /uL Eos # (Auto) 400 (0-450) /uL Baso # (Auto) 0 (0-100) /uL Sodium 140 (137-145) mmol/L Potassium 4.2 (3.4-5.1) mmol/L Chloride 105 (98-107) mmol/L Carbon Dioxide 26 (22-32) mmol/L BUN 18 (9-20) mg/dL Creatinine 1.05 (0.66-1.25) mg/dL Estimated GFR > 60 (>60) mL/min BUN/Creatinine Ratio 17.1 (6-22) Glucose 134 H (80-110) mg/dL Calcium 9.8 (8.4-10.2) mg/dL Magnesium 1.8 (1.6-2.3) mg/dL Total Bilirubin 0.5 (0.2-1.3) mg/dL AST 36 (17-59) IU/L ALT 38 (<50) IU/L Alkaline Phosphatase 60 (38-126) U/L Total Creatine Kinase 144 (55-170) U/L Troponin I < 0.012 (0.01-0.034) ng/mL Total Protein 7.6 (6.3-8.2) g/dL Albumin 4.6 (3.5-5.0) g/dL Globulin 3.0 (1.7-4.1) g/dL Albumin/Globulin Ratio 1.5 (1.0-2.8) Lipase 100 (23-300) U/L ECG Data Attestation: I personally reviewed and interpreted this ECG as follows: Interpretation: Supraventricular tachycardia Ventricular rate of 145 Normal axis Normal QRS Nonspecific ST T wave changes Repeat EKG Sinus rhythm Normal axis Normal QRS No ST T wave changes MDM Narrative Medical decision making narrative: Patient arrived tachycardic. He was also hypertensive. Has a history of SVT. Turns out that he has been taking less of his metoprolol recently because of the swelling that he has been having in his lower extremities. While the patient was getting an IV and waiting to get set up in order to administer adenosine the patient converted to sinus rhythm. His labs were unremarkable. Patient was observed for period of time remaining in sinus rhythm. The symptoms improved after converting to sinus rhythm. Will discharge patient home with return precautions and instructions to take his metoprolol as directed. He expressed understanding and agreement. Discharge Plan Departure Patient Disposition: Home Clinical Impression: Paroxysmal supraventricular tachycardia Instructions: Arrhythmias Activity Restrictions/Additional Instructions: recommend that you continue to take all of your medications as directed to include taking your metoprolol. Contact your primary care doctor for a follow-up. Return to the emergency department for new or worsening symptoms. Prescriptions: No Action metoprolol succinate 50 mg tablet extended release 24 hr 50 mg PO DAILY Qty: 90 3RF furosemide 40 mg tablet 40 mg PO DAILY Qty: 90 3RF omega-3 fatty acids Capsule 1,000 mg PO DAILY valsartan 80 mg tablet 80 mg PO DAILY Qty: 90 3RF magnesium 1 tab PO DAILY potassium chloride 8 mEq tablet extended release 8 meq PO DAILY Qty: 90 3RF Referrals: Steve Pierre MD [Primary Care Provider] - Stand Alone Forms: Patient Portal/API/Survey
[2024-10-04 05:11] LABS: Add Manual Diff / Slide Review NO; Basophils Absolute Auto 0 /uL (0-100); Basophils Percent Auto 0.7 % (0-2); Eosinophils Absolute Auto 400 /uL (0-450); Hematocrit 41.9 % (41-53); Hemoglobin 14.3 g/dL (13.5-17.5); Lymphocytes Absolute Auto 1700 /uL (1100-4500); Mean Corpuscular HGB Conc 34.1 % (30-36); Mean Corpuscular Hemoglobin 31.4 PG (26-34); Mean Corpuscular Volume 92.1 fL (80-100); Monocytes Absolute Auto 700 /uL (0-900); Monocytes Percent Auto 10.7 % (3-14); Neutrophils Absolute Auto 3900 /uL (1500-7000); Neutrophils Percent Auto 57.6 % (50-75); Platelet Count 250 X10^3/uL (150-400); Red Blood Cell Count 4.55 X10^6/uL (4.5-5.9); Red Cell Distribution Width 13.3 % (11.6-14.8); White Blood Cell Count 6.8 X10^3/uL (4.5-11.0)
--- NOTE | 2024-10-04 05:12 | PC.NURSE ---
During placement of defibrillator heart rate noted to decrease and pt converted to NSR. Pt states feeling of chest tightness relieved and noted no longer feeling fast heart rate. Dr. Miranda informed and at bedside. Repeat EKG ordered.
--- NOTE | 2024-10-04 05:15 | EKG_ITS ---
[facility] [id number] [place] [id number] Test Date: 2024-10-04 Pat Name: To Guzmán Department: Room: Gender: Male [place]: ALISE STYLES : 1960 Requested By: Order Number: [id number] Reading MD: Americo Miles Measurements Intervals [place] Rate: 84 P: -43 CT: 144 QRS: 40 QRSD: 90 T: 52 QT: 372 QTc: 439 Interpretive Statements Unusual P axis, possible ectopic atrial rhythm Electronically Signed On 10-04-2024 12:56:23 PST by Americo Miles
[2024-10-04 05:36] LABS: Alanine Aminotransferase 38 IU/L (<50); Albumin 4.6 g/dL (3.5-5.0); Albumin Globulin Ratio 1.5 (1.0-2.8); Alkaline Phosphatase 60 U/L (38-126); Aspartate Aminotransferase 36 IU/L (17-59); BUN Creatinine Ratio 17.1 (6-22); Bilirubin Total 0.5 mg/dL (0.2-1.3); Blood Urea Nitrogen 18 mg/dL (9-20); Calcium 9.8 mg/dL (8.4-10.2); Carbon Dioxide 26 mmol/L (22-32); Chloride 105 mmol/L (98-107); Creatine Kinase 144 U/L (55-170); Estimated Glomerular Filt Rate > 60 mL/min (>60); Glucose 134 mg/dL (80-110); Lipase 100 U/L (23-300); Magnesium 1.8 mg/dL (1.6-2.3); Potassium 4.2 mmol/L (3.4-5.1); Sodium 140 mmol/L (137-145); Total Protein 7.6 g/dL (6.3-8.2)
[2024-10-04 05:38] LABS: HEMOLYSIS 52 (0-50)
[2024-10-04 05:47] LABS: Troponin I < 0.012 ng/mL (0.01-0.034)
== END 2024-10-04 05:49 | disposition home or self-care (01) ==
PROVIDERS: Emergency Provider Emergency Medicine; PCP Internal Medicine
DX: I47.10 Supraventricular tachycardia, unspecified (principal); I10 Essential (primary) hypertension; E66.9 Obesity, unspecified; Z68.39 Body mass index [BMI] 39.0-39.9, adult
CPT/HCPCS: 36415; 80053; 82550; 83690; 83735; 84484; 85025; 93005; 99283; 99284

== ENCOUNTER 2024-10-09 07:35 | Emergency (ER) | payer OTHER, SELFPAY ==
[2024-10-09 07:40] VITALS: BP 183/91; PULSE 69; RESP 17; TEMP 36.3; O2SAT 100; BMI 24.3
--- NOTE | 2024-10-09 11:39 | ED_ITS ---
HPI - Extremity Problem <Loulou Mccann PA-C - Last Filed: 10/09/24 11:44> General Chief complaint: Extremity Problem,Nontraumatic Stated complaint: Pain in Left big toe Time Seen by Provider: 10/09/24 11:13 Source: patient Mode of arrival: Family Vehicle History of Present Illness HPI Narrative: Mr. Guzmán is a very pleasant 63-year-old male with a past medical history of hypertension, peripheral edema, paroxysmal SVT, DONOVAN who presents to the emergency department for left great toe redness and swelling x3 days. Patient was trimming his toenails Monday evening and he noticed redness and swelling of the left great toe on Monday. Yesterday he went to the walk-in clinic and was diagnosed with cellulitis and prescribed cephalexin 4 times a day times 10 days. Patient presents to the emergency department today for wound recheck. Patient previously marked the area of erythema on his left great toe and he is seeing improvement/decrease in the redness. Pain is also improved significantly. Denies fevers, chills, any other concerns. No pus drainage from the toe. Related Data Home Medications Medication Instructions Recorded Confirmed omega-3 fatty acids 1,000 mg PO DAILY 07/25/23 10/08/24 magnesium 1 tab PO DAILY 11/27/23 10/08/24 furosemide 20 mg tablet mg PO DAILY 10/08/24 10/08/24 Previous Rx's Medication Instructions Recorded valsartan 80 mg tablet 80 mg PO DAILY #90 tabs 10/30/23 potassium chloride 8 mEq 8 meq PO DAILY #90 tabs 11/27/23 tablet,extended release metoprolol succinate 50 mg 50 mg PO DAILY #90 tabs 05/15/24 tablet,extended release 24 hr furosemide 40 mg tablet 40 mg PO DAILY #90 tabs 05/24/24 cephalexin 500 mg capsule 500 mg PO Q6H 10 days #40 caps 10/08/24 Allergies Allergy/AdvReac Type Severity Reaction Status Date / Time lisinopril AdvReac Severe cough Verified 10/09/24 07:46 amlodipine AdvReac Intermediate edema Verified 10/09/24 07:46 mupirocin AdvReac skin Verified 10/09/24 07:46 irritation, redness Review of Systems <Loulou Mccann PA-C - Last Filed: 10/09/24 11:44> Review of Systems ROS Unobtainable: All systems reviewed & are unremarkable except as noted in HPI and below Patient History <Loulou Mccann PA-C - Last Filed: 10/09/24 11:44> Medical History Peripheral edema Palpitations Wears glasses Eczema Asthma (~2016) Proteinuria (~2009) DONOVAN (obstructive sleep apnea) Obesity Hypertension Surgical History History of radiofrequency ablation (RFA) procedure for cardiac arrhythmia (~07/2023) Anesthesia History of colonoscopy (~2018) S/P ACL repair (~2010) Status post rotator cuff repair (~2008) Family History Father Hypertension Pacemaker Loud snoring Sleep apnea Heart disease Mother Obesity Family/Other Loud snoring Sleep apnea Obesity Hypertension Grandfather Heart disease Social History household members: spouse Smoking Status: Former smoker Smoking Status: Former smoker tobacco type: cigarettes alcohol intake frequency: 3 or more drinks per day Exam <Loulou Mccann PA-C - Last Filed: 10/09/24 11:44> Narrative Exam Narrative: GENERAL: 63 year old patient appears stated age. Well-developed patient, in no acute distress. HEAD: Atraumatic. Normocephalic. CARDIOVASCULAR: Regular rate. Palpable DP and PT pulses bilaterally. Brisk capillary refill in all toes. RESPIRATORY: ?Nonlabored respirations. ?Speaking in clear, full sentences. ? EXTREMITIES: Erythema on the dorsal aspect of the left great toe overlying the IP joint. No fluid collection, palpable abscess or paronychia. No tenderness to palpation of the MTP. No streaking erythema. Marker on foot reveals decrease in prior erythema border. NEURO: AOx3. ?Clear speech. ?Moves all 4 extremities appropriately. SKIN: No rash or erythema of visible areas Initial Vital Signs Initial Vital Signs: Vital Signs Temperature 97.3 F L 10/09/24 07:40 Pulse Rate 69 10/09/24 07:40 Respiratory Rate 17 10/09/24 07:40 Blood Pressure 183/91 H 10/09/24 07:40 Pulse Oximetry 100 10/09/24 07:40 Oxygen Delivery Method Room Air 10/09/24 07:40 <DO Karsten Davis Last Filed: 10/10/24 07:53> Initial Vital Signs Initial Vital Signs: Vital Signs Temperature 97.3 F L 10/09/24 07:40 Pulse Rate 69 10/09/24 07:40 Respiratory Rate 17 10/09/24 07:40 Blood Pressure 183/91 H 10/09/24 07:40 Pulse Oximetry 100 10/09/24 07:40 Oxygen Delivery Method Room Air 10/09/24 07:40 Course <Loulou Mccann PA-C - Last Filed: 10/09/24 11:44> Vital Signs Vital signs: Vital Signs - 8 hr 10/09/24 07:40 Temperature 97.3 F L Pulse Rate 69 Respiratory Rate 17 Blood Pressure 183/91 H Pulse Oximetry 100 Oxygen Delivery Method Room Air <DO Karsten Davis Last Filed: 10/10/24 07:53> Vital Signs Vital signs: Vital Signs - 8 hr 10/09/24 07:40 Temperature 97.3 F L Pulse Rate 69 Respiratory Rate 17 Blood Pressure 183/91 H Pulse Oximetry 100 Oxygen Delivery Method Room Air MDM - Extremity (Nontraumatic) <MARCE Ortiz Last Filed: 10/09/24 11:44> Medical Records Attestation: I reviewed the patient's medical records. MDM Narrative Medical decision making narrative: 63-year-old male with a past medical history of hypertension, peripheral edema, paroxysmal SVT, DONOVAN who presents to the emergency department for left great toe redness and swelling x3 days. Differential diagnosis includes but is not limited to cellulitis, gout, paronychia, abscess, etc. On exam the patient is in no acute distress, nontoxic appearing, afebrile and not tachycardic. Patient was seen in the walk-in clinic yesterday started on Ke flex for left great toe cellulitis. He is here today for wound recheck. He previously marked the border of erythema on his left great toe revealing improvement in the erythema. He has no paronychia or abscess. No streaking erythema. No history of gout however he is on furosemide. Physical exam is most consistent with cellulitis of the left great toe with improvement on cephalexin. We will continue course of cephalexin however encouraged he also take ibuprofen and Tylenol as needed for pain and to cover for any possible inflammatory joint pain. Recommended follow up with PCP, return to the emergency department for any new or worsening symptoms such as fever, purulent drainage. No indication for MRSA coverage at this time. Patient verbalized understanding of all information is agreeable to the plan. He is stable for discharge home. Discharge Plan Departure Patient Disposition: Home Clinical Impression: Cellulitis of great toe of left foot Instructions: DI for Cellulitis -- Adult Activity Restrictions/Additional Instructions: Dear Mr. Guzmán, Thank you so much for coming into the emergency department today. I am glad to hear that the redness on your toe and the pain is getting better. I want to to complete the full course of the previously prescribed antibiotic, cephalexin, to treat suspected skin infection of the left toe. Please also take ibuprofen and Tylenol to help with pain. Please take Ibuprofen (Motrin/Advil) or Acetaminophen (Tylenol) for pain. These are available over the counter. You may take Ibuprofen 600 mg every 6-8 hours with food for pain. You may also take Acetaminophen 650 mg every 4-6 hours for pain or 1000mg every 8 hours. Do not exceed 3000 mg of Tylenol a day as this can cause liver damage. Do not drink alcohol with either of these medications. Please follow up with your primary care doctor within the next 2-3 days for ER follow-up. Return to the emergency department immediately if you develop fevers, pus drainage from the toe, streaking redness up the leg, worsening redness of the foot, any other concerns. (If you do not have a PCP you can call [phone]. ?to schedule an appointment with an [facility] Primary Care Provider) IF YOU DEVELOP ANY NEW OR WORSENING SYMPTOMS, RETURN TO THE ER! Please read the attached instructions, they highlight more specific treatments and interventions for you at home. Thank you for letting me participate in your care, Loulou Mccann PA-C Prescriptions: No Action furosemide 20 mg tablet PO DAILY cephalexin 500 mg capsule 500 mg PO Q6H 10 Days Qty: 40 0RF metoprolol succinate 50 mg tablet extended release 24 hr 50 mg PO DAILY Qty: 90 3RF furosemide 40 mg tablet 40 mg PO DAILY Qty: 90 3RF omega-3 fatty acids Capsule 1,000 mg PO DAILY valsartan 80 mg tablet 80 mg PO DAILY Qty: 90 3RF magnesium 1 tab PO DAILY potassium chloride 8 mEq tablet extended release 8 meq PO DAILY Qty: 90 3RF Referrals: Steve Pierre MD [Primary Care Provider] - Stand Alone Forms: Patient Portal/API/Survey ED Sign-out <Fauzia Holley DO - Last Filed: 10/10/24 07:53> Cosign ED Attending Cosignature Attestation: I was available for consultation.
[2024-10-09 11:40] VITALS: BP 159/77; PULSE 70; RESP 16; TEMP 36.8; O2SAT 97
== END 2024-10-09 11:40 | disposition home or self-care (01) ==
PROVIDERS: Emergency Provider Physician Assistant; PCP Internal Medicine
DX: L03.032 Cellulitis of left toe (principal)
CPT/HCPCS: 99281

== ENCOUNTER → 2024-12-12 12:21 | Outpatient (CLI) | payer OTHER, SELFPAY ==
--- NOTE | 2024-12-12 12:22 | DI.ECHO.S_ITS ---
[facility] +---------+ [facility] : : [address] : : [place] : : [id number] : : Phone: [phone] Echocardiogram Report + + :Name: ELIO MARTIN Study Date: 12/12/2024 Height: 69 in : :[facility] ReadingLocation: Weight: 260 lb : : Gender: Male BSA: 2.3 m2 : :: 1960 Age: 64 yrs BP: 150/92 mmHg: :Reason For Study: SVT : :Ordering Physician: Devora GILLILANDformed By: Soniya Leong : :Referring: PINKY GILLILAND : + + Interpretation Summary Normal sinus rhythm and uncontrolled blood pressure. Normal LV size and mildly increased wall thickness. Normal wall motion and LV systolic function; EF is 55-60%. Stage I diastolic dysfunction. Normal chamber sizes. No significant valvular abnormalities. Compared to prior echo 03/07/2024 no significant changes have occurred. RV was not well visualized on current study. Procedure: A two-dimensional transthoracic echocardiogram with color flow and Doppler was performed. The study quality was technically adequate. Comparison is made with the echocardiogram of 03/07/2024. The patient was in sinus rhythm with heart rates between 62-66 bpm during the exam. Left Ventricle: The left ventricle is normal in size. There is mild concentric left ventricular hypertrophy. The ejection fraction is estimated to be 55-60%. Right Ventricle: The right ventricle is not well visualized. The right ventricular systolic function is normal. Atria: The left atrial size is normal. Right atrial size is normal. There is no Doppler evidence for an interatrial shunt. Mitral Valve: The mitral valve is normal in structure and function. There is mild mitral regurgitation. Aortic Valve: The aortic valve is trileaflet. The aortic valve opens well. There is no aortic valve stenosis. No aortic regurgitation is present. Tricuspid Valve: The tricuspid valve leaflets are thin and pliable. No tricuspid regurgitation. Pulmonary artery pressures cannot be estimated because of the lack of a measurable TR jet velocity. Pulmonic Valve: The pulmonic valve leaflets are thin and pliable; valve motion is normal. There is no pulmonic valvular regurgitation. Great Vessels: The aortic root is normal size. The dimensions of the ascending aorta are normal. The IVC is of normal diameter and collapses greater than 50% with a sniff. This suggests a low right atrial pressure of 3 mm Hg. Pericardium/ Pleura There is no pericardial effusion. There is no pleural effusion. MMode/2D Measurements & Calculations LVIDd: 4.7 cm LVOT diam: 2.2 cm LVIDs: 2.8 cm Ao root diam: 3.8 cm FS: 39.6 % asc Aorta Diam: 3.4 cm EPSS: 0.65 cm Ao Arch Diam (Prox Trans): 2.9 cm IVSd: 1.2 cm LVPWd: 1.0 cm LV mattson. diameter/BSA (cm/m^2): 2.0 LV sys. diameter/BSA (cm/m^2): 1.2 LA A2 area: 24.9 cm2 RA long axis: 5.5 cm LA A4 area: 22.5 cm2 RA area: 18.3 cm2 LA length (vol): 6.2 cm RA vol: 51.5 ml LA vol: 77.1 ml RA : 22.3 ml/m2 LA vol index: 33.4 ml/m2 IVC diam: 2.0 cm RVD1 (basal): 4.4 cm TAPSE: 2.4 cm Doppler Measurements & Calculations Ao V2 max: 129.6 cm/sec LVOT Max Thor: 88.8 cm/sec Ao V2 mean: 89.6 cm/sec LV V1 max P.2 mmHg Ao max P.7 mmHg LV V1 VTI: 20.5 cm Ao mean P.6 mmHg VIRGINIE(I,D): 2.9 cm2 Ao V2 VTI: 26.6 cm VIRGINIE(V,D): 2.6 cm2 sev ratio: 0.77 VIRGINIE indexed to BSA (cm^2/m^2): 1.3 MV E max thor: 101.4 cm/sec PA V2 max: 117.8 cm/sec MV A max thor: 113.9 cm/sec PA V2 mean: 81.8 cm/sec MV E/A: 0.89 PA mean P.9 mmHg Med Peak E' Thor: 8.1 cm/sec PA pr(Accel): 34.0 mmHg E/E' med: 12.5 Lat Peak E' Thor: 10.3 cm/sec E/E' lat: 9.8 E/e' average: 11.2 MV dec time: 0.22 sec SV([facility]): 77.8 ml Electronically signed by: Evon Mcgarry M.D. on Reading Physician:12/13/2024 02:02 AM
--- NOTE | 2024-12-18 09:24 | DI.NM.S_ITS ---
DATE OF SERVICE: 12/12/2024 EXERCISE TREADMILL STRESS TEST PROCEDURE: Exercise treadmill stress test without imaging. ORDERING PROVIDER: Ariel Heller MD INDICATIONS: The patient is a 64-year-old male with a history of hypertension and SVT with recent palpitations and chest tightness. FINDINGS: 1. The patient was able to exercise for 9 minutes 1 second on a standard Jamal protocol suggesting good exercise capacity with an EMRE of -7%, achieving 9.7 METs. 2. He had a normal heart rate response to exercise, achieving a maximum heart rate of 152 bpm (96% of his predicted maximum). He had a borderline hypertensive blood pressure response with a resting blood pressure of 141/92, increasing to a maximum of 200/71. 3. He had no chest discomfort or anginal symptoms. 4. His resting ECG shows sinus rhythm with normal ST segments. With stress, there are no significant ST-segment shifts or arrhythmias. IMPRESSION: 1. Normal exercise treadmill stress test for ischemia. 2. Good exercise capacity without angina or arrhythmias and a borderline hypertensive blood pressure response to exercise. To Guzmán - RS/fn/IN doc#: [id number]/job#: [id number] dd: 12/12/2024 17:17:00 dt: 12/12/2024 18:12:00 DICTATING /COPIES TO: Jimy Hammond MD; Ariel Heller MD COPIES MNE: PIO;
== END ==
LOC: ECHO 12:22
PROVIDERS: PCP Internal Medicine; Referring Provider Internal Medicine Cardiovascular Disease; Visit Provider Internal Medicine Cardiovascular Disease
DX: I47.10 Supraventricular tachycardia, unspecified (principal); I34.0 Nonrheumatic mitral (valve) insufficiency; I10 Essential (primary) hypertension; R07.89 Other chest pain; R00.2 Palpitations
CPT/HCPCS: 93017; 93306

== ENCOUNTER → 2024-12-28 08:22 | Outpatient (CLI) | payer OTHER, SELFPAY ==
[2024-12-28 09:42] LABS: Alanine Aminotransferase 34 IU/L (<50); Albumin 4.2 g/dL (3.5-5.0); Albumin Globulin Ratio 1.7 (1.0-2.8); Alkaline Phosphatase 71 U/L (38-126); Aspartate Aminotransferase 28 IU/L (17-59); BUN Creatinine Ratio 22.9 (6-22); Bilirubin Total 0.6 mg/dL (0.2-1.3); Blood Urea Nitrogen 22 mg/dL (9-20); Calcium 9.4 mg/dL (8.4-10.2); Carbon Dioxide 28 mmol/L (22-32); Chloride 104 mmol/L (98-107); Cholesterol 224 mg/dL (140-199); Estimated Glomerular Filt Rate > 60 mL/min (>60); Globulin 2.5 g/dL (1.7-4.1); Glucose 133 mg/dL (80-110); HDL Cholesterol 57 mg/dL (40-60); HEMOLYSIS < 15 (0-50); LDL Cholesterol Calculated 131 mg/dL (<100); Potassium 4.7 mmol/L (3.4-5.1); Sodium 138 mmol/L (137-145); Total Protein 6.7 g/dL (6.3-8.2); Triglycerides 178 mg/dL (35-150)
[2024-12-28 10:12] LABS: Prostate Specific Antigen Scrn 1.76 ng/mL (0.1-4.0)
== END ==
LOC: LAB 08:24
PROVIDERS: PCP Internal Medicine; Referring Provider Internal Medicine; Visit Provider Internal Medicine
DX: I10 Essential (primary) hypertension (principal); R60.0 Localized edema; Z12.5 Encounter for screening for malignant neoplasm of prostate
CPT/HCPCS: 36415; 80053; 80061; G0103

== ENCOUNTER → 2025-02-28 16:52 | Outpatient (CLI) | payer OTHER, SELFPAY ==
[2025-02-28 17:31] LABS: Add Manual Diff / Slide Review NO; Basophils Absolute Auto 0 /uL (0-100); Basophils Percent Auto 0.6 % (0-2); Eosinophils Absolute Auto 300 /uL (0-450); Hemoglobin 13.8 g/dL (13.5-17.5); Lymphocytes Absolute Auto 1900 /uL (1100-4500); Lymphocytes Percent Auto 31.3 % (25-40); Mean Corpuscular HGB Conc 33.6 % (30-36); Mean Corpuscular Hemoglobin 30.8 PG (26-34); Mean Corpuscular Volume 91.8 fL (80-100); Monocytes Absolute Auto 500 /uL (0-900); Monocytes Percent Auto 7.9 % (3-14); Neutrophils Absolute Auto 3300 /uL (1500-7000); Neutrophils Percent Auto 55.2 % (50-75); Platelet Count 257 X10^3/uL (150-400); Red Blood Cell Count 4.47 X10^6/uL (4.5-5.9); Red Cell Distribution Width 13.1 % (11.6-14.8); White Blood Cell Count 5.9 X10^3/uL (4.5-11.0)
[2025-02-28 17:50] LABS: Alanine Aminotransferase 33 IU/L (<50); Albumin 4.6 g/dL (3.5-5.0); Albumin Globulin Ratio 1.9 (1.0-2.8); Alkaline Phosphatase 69 U/L (38-126); Aspartate Aminotransferase 28 IU/L (17-59); BUN Creatinine Ratio 17.9 (6-22); Bilirubin Total 0.6 mg/dL (0.2-1.3); Blood Urea Nitrogen 17 mg/dL (9-20); Calcium 9.5 mg/dL (8.4-10.2); Carbon Dioxide 27 mmol/L (22-32); Chloride 103 mmol/L (98-107); Estimated Glomerular Filt Rate > 60 mL/min (>60); Globulin 2.4 g/dL (1.7-4.1); Glucose 117 mg/dL (70-99); HEMOLYSIS < 15 (0-50); Potassium 4.1 mmol/L (3.4-5.1); Sodium 139 mmol/L (137-145)
== END ==
PROVIDERS: PCP Internal Medicine; Referring Provider Internal Medicine; Visit Provider Internal Medicine
DX: I10 Essential (primary) hypertension (principal); D64.9 Anemia, unspecified; R73.9 Hyperglycemia, unspecified
CPT/HCPCS: 36415; 80053; 83036; 85025

== ENCOUNTER → 2025-03-18 10:45 | Outpatient (CLI) | payer OTHER, SELFPAY ==
[2025-03-18 12:21] LABS: Influenza A - CEPHEID Flu A NEGATIVE (NEGATIVE); Influenza B - CEPHEID Flu B NEGATIVE (NEGATIVE)
[2025-03-18 12:22] LABS: COVID-19 CEPHEID 4-PLEX PCR Negative (Negative)
== END ==
PROVIDERS: PCP Internal Medicine; Visit Provider Internal Medicine
DX: R05.9 Cough, unspecified (principal); B34.9 Viral infection, unspecified
CPT/HCPCS: 87637